=== PATIENT | female | born 1960 | race Caucasian/White ===

== ENCOUNTER → 2016-09-17 | Outpatient (CLI) | payer OTHER | END | disposition home or self-care (01) | LOC: C.LAB 10:50 | DX: R10.9 Unspecified abdominal pain (principal) ==

== ENCOUNTER → 2016-10-26 | Outpatient (CLI) | payer OTHER ==
--- NOTE | 2016-10-26 13:21 | DIAGNOSTIC IMAGING REPORT ---
KUB HISTORY: CONSTIPATION/generalized abdominal PAIN COMPARISON: KUB 05/27/2015. FINDINGS: The bowel gas pattern is unremarkable. There are no dilated loops of small bowel to suggest an obstruction. No renal calculi. No ureteral calculi. No pneumoperitoneum or pneumatosis. Levoscoliosis of the lumbar spine is again noted. Moderate well-formed stool seen throughout the colon. This is not significant changed. Stable linear calcification overlying the left L4 transverse process. Therefore, this favors a vascular calcification. A few pelvic phleboliths remain stable. IMPRESSION: No significant change compared to the prior study. No evidence for bowel obstruction. Moderate well-formed stool is seen throughout the colon. Electronically signed by: Luis Swan M.D. 10/26/2016 1:20 PM Dictated Date/Time: 10/26/2016 1:19 PM
[2016-11-01 00:36] LABS: ENDOMYSIAL IGA AB TC 15064 Negative (Negative); GLIADIN DEAMIDATED IgA AB 5 UNITS (<20); GLIADIN DEAMIDATED IgG AB 2 UNITS (<20)
== END | disposition home or self-care (01) ==
LOC: C.RAD 12:42
DX: R10.9 Unspecified abdominal pain (principal); K59.00 Constipation, unspecified